=== PATIENT | male | born 1960 | race Two or more races ===

== ENCOUNTER → 2018-12-26 | Outpatient (CLI) | payer BC ==
[~2018-12-26] MED LIST: INSU100I32 SC; METF500T17 PO; MULT-642 PO; ROSU40TA PO; SAW450CA7 PO
[2018-12-26 10:41] LABS: BASOPHILS # (AUTO) 0.04 x10^3/uL (0-0.1); BASOPHILS % (AUTO) 1 % (0-1); EOSINOPHILS % (AUTO) 3 % (1-7); LYMPHOCYTES # (AUTO) 1.97 x10^3/uL (1-3.4); LYMPHOCYTES % (AUTO) 33 % (22-44); MD NO; MEAN CORPUSCULAR HEMOGLOBIN 28.9 pg (27.5-34.5); MEAN CORPUSCULAR VOLUME 87.6 fL (81-97); MEAN PLATELET VOLUME 8.3 fL (7.4-10.4); MONOCYTES # (AUTO) 0.35 x10^3/uL (0.2-0.8); MONOCYTES % (AUTO) 6 % (2-9); NEUTROPHILS # (AUTO) 3.44 x10^3/uL (1.8-6.8); NEUTROPHILS % (AUTO) 57 % (42-75); PLATELET COUNT 290 x10^3/uL (130-400); RED BLOOD COUNT 5.42 x10^6/uL (4.38-5.82); RED CELL DISTRIBUTION WIDTH 14.5 % (9.4-14.8)
[2018-12-26 10:54] LABS: ALANINE AMINOTRANSFERASE 43 U/L (12-78); ANION GAP 7 mmol/L (5-15); CALCIUM 9.5 mg/dL (8.5-10.1); CHLORIDE 105 mmol/L (98-107)
[2018-12-26 10:56] LABS: ALBUMIN 4.4 g/dL (3.4-5.0); ALKALINE PHOSPHATASE 97 U/L (45-117); BILIRUBIN,TOTAL 1.6 mg/dL (0.2-1.0); TOTAL PROTEIN 8.4 g/dL (6.4-8.2)
== END | disposition home or self-care (01) ==
LOC: STAR 09:25
PROVIDERS: ATTEND Colon & Rectal Surgery
DX: Z01.818 Encounter for other preprocedural examination (principal); R00.1 Bradycardia, unspecified
CPT/HCPCS: 36415; 80053; 85025; 93005

== ENCOUNTER 2019-01-03 08:23 | Inpatient (IN) | payer BC ==
[~2019-01-03] VITALS: Ht 162.6 cm; Wt 71.6 kg
[2019-01-03] MEDS ORDERED: LACTATED RINGERS 1,000 ML IV SCH ×2 (09:21→19:30)
[2019-01-03] MEDS ORDERED: SCOPOLAMINE PATCH, 1.5MG PATCH.TD72 TD ONE ×2 (12:29→12:30)
[2019-01-03] MEDS ORDERED: ACETAMINOPHEN 500 MG TABLET ONE (12:29)
[2019-01-03] MEDS ORDERED: ACETAMINOPHEN 500 MG TABLET PO ONE (12:30)
[2019-01-03] MEDS ORDERED: MEPERIDINE/PF 25MG/0.5ML IVPush PRN (12:30)
[2019-01-03] MEDS ORDERED: OXYcodone IR 5MG TABLET PO ONE (12:30)
[2019-01-03] MEDS ORDERED: MIDAZOLAM 1 MG/ML, 2ML IV PRN (12:30)
[2019-01-03] MEDS ORDERED: LABETALOL 5MG/ML, 20ML IV PRN (12:30)
[2019-01-03] MEDS ORDERED: FAMOTIDINE 20 MG TABLET PO ONE (12:30)
[2019-01-03] MEDS ORDERED: ONDANSETRON 2MG/ML, 2ML IVPush PRN (12:30)
[2019-01-03] MEDS ORDERED: OXYcodone 5 MG/5 ML ORAL.SOL UDC PO PRN (12:30)
[2019-01-03] MEDS ORDERED: ONDANSETRON 2MG/ML, 2ML IVPush ONE (12:30)
[2019-01-03] MEDS ORDERED: GABAPENTIN 300 MG CAPSULE PO ONE (12:30)
[2019-01-03] MEDS ORDERED: FENTANYL PF 100 MCG/2ML ONE ×3 (12:43→16:07)
[2019-01-03] MEDS ORDERED: MIDAZOLAM 1 MG/ML, 2ML ONE (12:43)
[2019-01-03] MEDS ORDERED: CEFOTETAN 1 GM ONE (12:51)
[2019-01-03] MEDS ORDERED: ROCURONIUM 10 MG/ML,10ML ONE (12:51)
[2019-01-03] MEDS ORDERED: PROPOFOL 10 MG/ML, 20ML ONE (12:51)
[2019-01-03] MEDS ORDERED: BUPIVACAINE/PF-EPI 0.5% 1:200K ONE (12:58)
[2019-01-03] MEDS ORDERED: INDOCYANINE GREEN 25 MG VIAL ONE (12:58)
[2019-01-03] MEDS ORDERED: MEPERIDINE/PF 25MG/ML,1ML ONE (15:30)
[2019-01-03] MEDS: FENTANYL PF 100 MCG/2ML IV PRN ×2 (15:36→15:59)
[2019-01-03] MEDS ORDERED: OXYcodone 5 MG/5 ML ORAL.SOL UDC ONE (15:41)
[2019-01-03] MEDS ORDERED: HYDROmorphone 1 MG/ML, 1ML ONE (15:41)
[2019-01-03] MEDS: HYDROmorphone 1 MG/ML, 1ML IV PRN ×2 (15:46→16:06)
[2019-01-03] MEDS ORDERED: PROMETHAZINE 25 MG/ML, 1ML ONE (16:25)
[2019-01-03 18:35] VITALS: BP 144/78
[2019-01-03] MEDS ORDERED: ONDANSETRON 2MG/ML, 2ML IV PRN (19:30)
[2019-01-03] MEDS ORDERED: HALOPERIDOL 5 MG/ML IVPush PRN (19:30)
[2019-01-03] MEDS ORDERED: ENOXAPARIN 40 MG/0.4 ML SQ SCH (19:30)
[2019-01-03] MEDS ORDERED: MORPHINE SULFATE 4 MG/ML, 1ML IVPush PRN (19:30)
[2019-01-03] MEDS ORDERED: DIPHENHYDRAMINE 50 MG/ML, 1ML IVPush PRN (19:30)
[2019-01-03] MEDS ORDERED: SCOPOLAMINE PATCH, 1.5MG PATCH.TD72 TD PRN (19:30)
[2019-01-03] MEDS ORDERED: LORazepam 1MG TABLET PO PRN (19:30)
[2019-01-03] MEDS ORDERED: TRAZODONE 50MG TABLET PO PRN (19:30)
[2019-01-03] MEDS ORDERED: DEXAMETHASONE 4 MG/ML, 1ML IVPush PRN (19:30)
[2019-01-03] MEDS ORDERED: DIPHENHYDRAMINE 25 MG CAPSULE PO PRN (19:30)
[2019-01-03] MEDS ORDERED: LORazepam 2 MG/ML, 1ML IVPush PRN (19:30)
[2019-01-03] MEDS: ACETAMINOPHEN 500 MG TABLET PO SCH (20:13)
[2019-01-03] MEDS: PIPERACILLIN/TAZO/PMX 3.375GM 50 ML IV SCH (20:13)
[2019-01-03] MEDS: KETOROLAC 30 MG/1 ML IVPush SCH (20:13)
[2019-01-03] MEDS: ATORVASTATIN 80 MG TABLET PO SCH (20:14)
[2019-01-03] MEDS: INSULIN REGULAR, HUMAN 100 UNITS/ML, 3ML MEDIUM DOSE SS SQ-INSULIN SCH (20:43)
[2019-01-04] MEDS: KETOROLAC 30 MG/1 ML IVPush SCH ×2 (02:43→08:23)
[2019-01-04] MEDS: PIPERACILLIN/TAZO/PMX 3.375GM 50 ML IV SCH ×4 (02:44→21:43)
[2019-01-04] MEDS: ACETAMINOPHEN 500 MG TABLET PO SCH ×4 (02:44→21:40)
[2019-01-04 03:00] VITALS: BP 101/64
[2019-01-04 04:01] VITALS: BP 105/65
[2019-01-04 05:58] LABS: BASOPHILS # (AUTO) 0.02 x10^3/uL (0-0.1); BASOPHILS % (AUTO) 0 % (0-1); EOSINOPHILS % (AUTO) 0 % (1-7); LYMPHOCYTES # (AUTO) 1.45 x10^3/uL (1-3.4); LYMPHOCYTES % (AUTO) 11 % (22-44); MD NO; MEAN CORPUSCULAR HGB CONC 32.8 g/dL (33.2-36.2); MEAN CORPUSCULAR VOLUME 88.4 fL (81-97); MEAN PLATELET VOLUME 8.4 fL (7.4-10.4); MONOCYTES # (AUTO) 0.74 x10^3/uL (0.2-0.8); MONOCYTES % (AUTO) 6 % (2-9); NEUTROPHILS # (AUTO) 10.53 x10^3/uL (1.8-6.8); NEUTROPHILS % (AUTO) 83 % (42-75); PLATELET COUNT 257 x10^3/uL (130-400); RED BLOOD COUNT 4.74 x10^6/uL (4.38-5.82); RED CELL DISTRIBUTION WIDTH 14.6 % (9.4-14.8)
[2019-01-04 06:12] LABS: ANION GAP 2 mmol/L (5-15); CALCIUM 8.9 mg/dL (8.5-10.1); CHLORIDE 104 mmol/L (98-107); CREATININE 1.57 mg/dL (0.7-1.3)
[2019-01-04 08:16] VITALS: BP 98/61
[2019-01-04] MEDS: INSULIN DEGLUDEC HOMEINJ SCH (08:18)
[2019-01-04] MEDS: INSULIN REGULAR, HUMAN 100 UNITS/ML, 3ML MEDIUM DOSE SS SQ-INSULIN SCH ×4 (08:23→21:55)
[2019-01-04] MEDS: SODIUM CHLORIDE 0.9% 1,000 ML IV SCH ×2 (09:22→21:44)
[2019-01-04] MEDS: ENOXAPARIN 40 MG/0.4 ML SQ SCH (12:13)
[2019-01-04 14:24] VITALS: BP 99/61
[2019-01-04 19:06] VITALS: BP 98/58
[2019-01-04] MEDS: ATORVASTATIN 80 MG TABLET PO SCH (21:40)
[2019-01-04] MEDS: OXYcodone IR 5MG TABLET PO PRN (21:40)
[2019-01-05 00:30] VITALS: BP 96/59
[2019-01-05] MEDS: PIPERACILLIN/TAZO/PMX 3.375GM 50 ML IV SCH ×4 (03:29→21:26)
[2019-01-05] MEDS: ACETAMINOPHEN 500 MG TABLET PO SCH ×4 (03:29→21:27)
[2019-01-05] MEDS: OXYcodone IR 5MG TABLET PO PRN ×4 (04:29→21:27)
[2019-01-05] MEDS: SODIUM CHLORIDE 0.9% 1,000 ML IV SCH ×2 (05:30→21:26)
[2019-01-05 06:01] LABS: ANION GAP 5 mmol/L (5-15); CALCIUM 8.6 mg/dL (8.5-10.1); CHLORIDE 106 mmol/L (98-107); CREATININE 1.66 mg/dL (0.7-1.3)
[2019-01-05 06:05] LABS: BASOPHILS # (AUTO) 0.03 x10^3/uL (0-0.1); BASOPHILS % (AUTO) 0 % (0-1); EOSINOPHILS # (AUTO) 0.39 x10^3/uL (0-0.4); EOSINOPHILS % (AUTO) 4 % (1-7); LYMPHOCYTES # (AUTO) 2.53 x10^3/uL (1-3.4); LYMPHOCYTES % (AUTO) 26 % (22-44); MD NO; MEAN CORPUSCULAR HEMOGLOBIN 29.3 pg (27.5-34.5); MEAN CORPUSCULAR HGB CONC 33.1 g/dL (33.2-36.2); MEAN CORPUSCULAR VOLUME 88.5 fL (81-97); MEAN PLATELET VOLUME 8.4 fL (7.4-10.4); MONOCYTES # (AUTO) 0.54 x10^3/uL (0.2-0.8); MONOCYTES % (AUTO) 6 % (2-9); NEUTROPHILS # (AUTO) 6.28 x10^3/uL (1.8-6.8); NEUTROPHILS % (AUTO) 64 % (42-75); PLATELET COUNT 255 x10^3/uL (130-400); RED CELL DISTRIBUTION WIDTH 14.1 % (9.4-14.8)
[2019-01-05] MEDS: INSULIN REGULAR, HUMAN 100 UNITS/ML, 3ML MEDIUM DOSE SS SQ-INSULIN SCH ×4 (06:38→21:48)
[2019-01-05 07:05] VITALS: BP 98/62
[2019-01-05] MEDS: INSULIN DEGLUDEC HOMEINJ SCH (08:36)
[2019-01-05] MEDS: ENOXAPARIN 40 MG/0.4 ML SQ SCH (11:21)
[2019-01-05 14:34] VITALS: BP 128/79
[2019-01-05 19:23] VITALS: BP 129/78
[2019-01-05] MEDS: ATORVASTATIN 80 MG TABLET PO SCH (21:27)
[2019-01-06] MEDS: PIPERACILLIN/TAZO/PMX 3.375GM 50 ML IV SCH ×2 (03:19→09:48)
[2019-01-06] MEDS: ACETAMINOPHEN 500 MG TABLET PO SCH ×2 (03:19→09:48)
[2019-01-06 03:37] VITALS: BP 144/79
[2019-01-06 06:05] LABS: BASOPHILS # (AUTO) 0.04 x10^3/uL (0-0.1); BASOPHILS % (AUTO) 1 % (0-1); EOSINOPHILS # (AUTO) 0.22 x10^3/uL (0-0.4); EOSINOPHILS % (AUTO) 4 % (1-7); LYMPHOCYTES # (AUTO) 1.78 x10^3/uL (1-3.4); LYMPHOCYTES % (AUTO) 29 % (22-44); MD NO; MEAN CORPUSCULAR HEMOGLOBIN 28.9 pg (27.5-34.5); MEAN CORPUSCULAR HGB CONC 33.2 g/dL (33.2-36.2); MEAN PLATELET VOLUME 8.3 fL (7.4-10.4); MONOCYTES % (AUTO) 7 % (2-9); NEUTROPHILS % (AUTO) 60 % (42-75); PLATELET COUNT 256 x10^3/uL (130-400); RED BLOOD COUNT 3.97 x10^6/uL (4.38-5.82); RED CELL DISTRIBUTION WIDTH 14.1 % (9.4-14.8)
[2019-01-06 06:16] LABS: ANION GAP 4 mmol/L (5-15); CALCIUM 8.3 mg/dL (8.5-10.1); CHLORIDE 110 mmol/L (98-107)
[2019-01-06 06:19] LABS: CREATININE 1.19 mg/dL (0.7-1.3)
[2019-01-06] MEDS: INSULIN REGULAR, HUMAN 100 UNITS/ML, 3ML MEDIUM DOSE SS SQ-INSULIN SCH (07:00)
[2019-01-06 07:40] VITALS: BP 143/76
[2019-01-06 07:52] VITALS: BP 142/81
[2019-01-06] MEDS: SODIUM CHLORIDE 0.9% 1,000 ML IV SCH (08:00)
[2019-01-06] MEDS: INSULIN DEGLUDEC HOMEINJ SCH (09:00)
[2019-01-06] MEDS ORDERED: OXYC-302 PO (09:56)
[2019-01-06] MEDS ORDERED: AMOX1TAB64 PO (09:58)
== END 2019-01-06 10:50 | disposition home or self-care (01) | DRG 330 ==
LOC: ORIP 08:23 → 4NOR 17:18
PROVIDERS: ADMIT Colon & Rectal Surgery; ATTEND Colon & Rectal Surgery
PROC: 8E0W4CZ Robotic Assisted Procedure of Trunk Region, Percutaneous Endoscopic Approach (ICD-10-PCS; 2019-01-03)
PROC: 03HY32Z Insertion of Monitoring Device into Upper Artery, Percutaneous Approach (ICD-10-PCS; 2019-01-03)
PROC: 0DBN4ZZ Excision of Sigmoid Colon, Percutaneous Endoscopic Approach (ICD-10-PCS; principal; 2019-01-03 11:00)
DX: K57.20 Diverticulitis of large intestine with perforation and abscess without bleeding (principal); N32.1 Vesicointestinal fistula; E11.9 Type 2 diabetes mellitus without complications; E78.00 Pure hypercholesterolemia, unspecified
CPT/HCPCS: 36415; J3490; 80048; 82962; 83735; 84132; 85025; 86850; 86900; 87070; 87075; 87076; 87077; 87186; 87205; 88307; C1729; G0378; J1170; J1650; J1815; J1885; J2175; J2250; J2405; J2543; J2704; J3010; C1765; J7030; J7120